=== PATIENT | female | born 1935 | race Caucasian/White ===

== ENCOUNTER 2016-09-18 16:44 | Outpatient (CLI) | payer MEDICARE, OTHER | END 2016-09-18 16:45 | disposition critical access hospital (66) | LOC: EMS 16:44 | PROVIDERS: ATTEND Surgery | DX: R11.2 Nausea with vomiting, unspecified (principal) | CPT/HCPCS: A0425; A0427 ==

== ENCOUNTER 2016-09-18 17:04 | Emergency (ER) | payer MEDICARE, OTHER ==
--- NOTE | 2016-09-18 18:32 | ED Physician Documentation ---
PD HPI NVD - Stated complaint Stated Complaint: VOMITING/NAUSEA - Chief complaint Chief Complaint: Abd Pain - History obtained from History obtained from: Patient - History of Present Illness Timing - onset: Today Timing - duration: Days (today had feeling of some nausea and less appetite. Feeling some upper abd fullness. Drove to store and there had onset of vomiting repetitively. Brought here by EMS. No prior similar episodes. She says her appetite has been less for 1-2 months, with feeling full easily.) Timing - details: Gradual onset (she had felt some bloating and mild cramps earlier this morning and did not eat due to it. Then started with vomiting when drove to store, and vomited several times over an hour or so.) Associated symptoms: Abdominal pain (bloating cramps), Loss of appetite (today, and has had less appetite for about a month or so.). No: Fever, Near syncope / syncope Contributing factors: No: Sick contact, Bad food, Travel, Recent antibiotics Improved by: Vomiting Worsened by: No: Moving, Breathing, Palpation Similar symptoms before: Has not had sx before Recently seen: Not recently seen Review of Systems Constitutional: denies: Fever, Chills Nose: denies: Rhinorrhea / runny nose, Congestion Throat: denies: Sore throat Cardiac: denies: Chest pain / pressure, Palpitations, Pedal edema, Calf pain Respiratory: denies: Dyspnea, Cough, Wheezing GI: reports: Abdominal Pain, Nausea, Vomiting. denies: Constipation, Diarrhea, Hematemesis, Bloody / black stool : denies: Dysuria, Frequency Skin: denies: Rash, Lesions Musculoskeletal: reports: Back pain (chronic), Extremity swelling (mild for 2-3 months, both legs.) Neurologic: reports: Generalized weakness. denies: Focal weakness, Numbness, Altered mental status, Headache Psychiatric: denies: Depressed, Anxiety, Insomnia Endocrine: denies: Weight loss Immunocompromised: denies: Immunocompromised, Chemotherapy PD PAST MEDICAL HISTORY - Past Medical History Cardiovascular: Hypertension - Past Surgical History Past Surgical History: No - Present Medications Home Medications: Ambulatory Orders Medication Instructions Recorded Confirmed Lisinopril [Lisinopril] 2.5 mg PO DAILY 09/18/16 09/18/16 Morphine Sulfate [Morphine Sulfate 15 mg PO DAILY 09/18/16 09/18/16 ER] Morphine Sulfate [Morphine Sulfate 30 mg PO DAILY 09/18/16 09/18/16 ER] Oxybutynin [Ditropan] 5 mg PO DAILY 09/18/16 09/18/16 Ranitidine HCl [Ranitidine HCl] 150 mg PO DAILY 09/18/16 09/18/16 Simvastatin [Simvastatin] 40 mg PO DAILY 09/18/16 09/18/16 oxyCODONE [Roxicodone] 5 mg PO DAILY 09/18/16 09/18/16 - Allergies Allergies/Adverse Reactions: Allergies Allergy/AdvReac Type Severity Reaction Status Date / Time promethazine HCl * AdvReac Unknown Verified 09/18/16 19:55 [From Phenergan] - Living Situation Living Situation: reports: Alone Living Arrangement: reports: At home - Social History Does the pt smoke?: No Does the pt drink ETOH?: No Does the pt have substance abuse?: No - Family History Family history: reports: Non contributory PD ED PE NORMAL - Vitals Vital signs reviewed: Yes - General General: Alert and oriented X 3, Well developed/nourished, Other (nauseated on exam; pleasant and talkative. ) - HEENT HEENT: Atraumatic, PERRL (nonicteric), Ears normal, Moist mucous membranes, Pharynx benign - Neck Neck: Supple, no meningeal sign, No adenopathy - Cardiac Cardiac: RRR, No murmur - Respiratory Respiratory: Clear bilaterally - Abdomen Abdomen: Soft, No organomegaly, Other (increased bowel sounds, abdomen diffusely distended with some tenseness, and is tender mid abdomen mainly. ) - Female Female : Deferred - Rectal Rectal: Deferred - Back Back: No CVA TTP - Derm Derm: Normal color, No rash - Extremities Extremities: No deformity, No tenderness to palpate, No calf tenderness / cord, Other (1+ edema in both legs up to just below knees. No rash nor sores. ) - Neuro Neuro: Alert and oriented X 3, No motor deficit, No sensory deficit, Normal speech - Psych Psych: Normal mood, Normal affect Results - Vitals Vitals: Vital Signs - 24 hr 09/18/16 09/18/16 09/18/16 17:08 19:10 21:10 Temperature 36.1 C L Heart Rate 88 102 H 87 Respiratory 16 18 20 Rate Blood Pressure 148/73 H 136/64 H 150/95 H O2 Saturation 98 99 97 09/19/16 09/19/16 00:25 02:45 Temperature Heart Rate 76 82 Respiratory 18 18 Rate Blood Pressure 138/87 H 118/68 O2 Saturation 99 98 Oxygen O2 Source Nasal cannula - Labs Labs: Laboratory Tests 09/18/16 09/18/16 09/18/16 20:25 20:25 20:25 WBC 11.0 H RBC 3.83 L Hgb 11.7 L Hct 34.9 L MCV 91.2 MCH 30.6 MCHC 33.5 RDW 13.3 Plt Count 195 MPV 8.6 Neut # 9.5 H Lymph # 0.6 L Bourbon # 0.8 Eos # 0.1 Baso # 0.0 Absolute Nucleated RBC 0.00 Nucleated RBCs 0.0 Sodium 139 Potassium 4.9 Chloride 103 Carbon Dioxide 28 Anion Gap 8.0 BUN 30 H Creatinine 1.2 H Estimated GFR (MDRD) 43 L Glucose 143 H Calcium 9.5 Magnesium 1.9 Total Bilirubin 1.2 H AST 21 ALT 27 Alkaline Phosphatase 83 Troponin I < 0.04 B-Natriuretic Peptide Total Protein 7.5 Albumin 4.1 Globulin 3.4 Albumin/Globulin Ratio 1.2 Lipase 16 L 09/18/16 20:25 WBC RBC Hgb Hct MCV MCH MCHC RDW Plt Count MPV Neut # Lymph # Bourbon # Eos # Baso # Absolute Nucleated RBC Nucleated RBCs Sodium Potassium Chloride Carbon Dioxide Anion Gap BUN Creatinine Estimated GFR (MDRD) Glucose Calcium Magnesium Total Bilirubin AST ALT Alkaline Phosphatase Troponin I B-Natriuretic Peptide 89 Total Protein Albumin Globulin Albumin/Globulin Ratio Lipase - Rads (name of study) abd CT Radiology: Prelim report reviewed (SBO with transition point RLQ. RLQ mass 8x5x5 cm. No obvious metastatic lesions seen. ), EMP read contemporaneously PD MEDICAL DECISION MAKING - ED course Complexity details: reviewed results (SBO with right adnexal mass concerning for neoplasm. Talked with Dr. Evans, Surgery, who felt the cause of the obstruction is involvement/adhesions from the tumor, and will need [facility]/Onc referral for operative intervention. Will contact [facility] facilities to arrange transfer. Patient and her daughter advised and updated. ), re- evaluated patient (she is improved with nausea and discomfort with IV fluids and meds. Still feels distended. Exam not tender at this time. No further vomiting. ), considered differential, d/w patient, d/w [employer] consultant (Dr. Evans , Surgery, who recommends transfer to [facility]/Onc, will try to arrange transfer to available facility.) Departure - Departure Disposition: 02 Transfer Acute Care Hosp Clinical Impression: Small bowel obstruction, Adnexal mass Vomiting Qualifiers: Vomiting type: unspecified Vomiting Intractability: non-intractable Nausea presence: with nausea Qualified Code(s): R11.2 - Nausea with vomiting, unspecified Condition: Stable Record reviewed to determine appropriate education?: Yes Discharge Date/Time: 09/19/16 02:51
[2016-09-18] MEDS ORDERED: SODIUM CHLORIDE 0.9% 1,000 ML IV ONE (18:53)
[2016-09-18] MEDS ORDERED: ONDANSETRON 4 MG/2 ML VIAL IVP STA (18:54)
[2016-09-18] MEDS ORDERED: ONDANSETRON 4 MG/2 ML VIAL ONE (19:50)
--- NOTE | 2016-09-18 19:53 | CT Preliminary Report ---
Exam: CT Abdomen/Pelvis W/O IMPRESSION: 1. Small bowel obstruction with transition in the right lower quadrant. 2. Multiloculated cystic right adnexal mass, appearance highly suggestive of neoplasm in a late postm enopausal patient. Recommend gynecologic consultation. 3. Intermediate density exophytic round lesion arising from the lower pole of the left kidney. Recomm end ultrasound to evaluate for cystic versus solid nature. 4. Cholelithiasis. 5. No normal pancreatic tissue confidently identified, indicating severe atrophy. [facility] SITE ID: [id number]
--- NOTE | 2016-09-18 19:56 | CT Report ---
EXAM: CT ABDOMEN AND PELVIS EXAM DATE: 09/18/2016 07:29 PM. CLINICAL HISTORY: Abdominal pain, bloating, and nausea. COMPARISONS: None. TECHNIQUE: Routine helical CT imaging was performed through the abdomen and pelvis. IV contrast: None . Enteric contrast: None. Reconstructions: Coronal and sagittal. In accordance with CT protocol optimization, one or more of the following dose reduction techniques w ere utilized for this exam: automated exposure control, adjustment of mA and/or KV based on patient s ize, or use of iterative reconstructive technique. FINDINGS: Lung Bases: Clear. Liver: Unremarkable noncontrast appearance. Gallbladder/Bile Ducts: Cholelithiasis. No pericholecystic inflammatory stranding. No biliary ductal dilatation. Spleen: Normal size. No contour-deforming mass. Pancreas: Questionable atrophic pancreatic head. No pancreatic tissue confidently visualized. Adrenal Glands: Normal. Kidneys and Ureters: 3.4 cm intermediate density exophytic lesion arising from the left lower pole (c oronal image 38, 35 HU). Several low-attenuation left renal cysts elsewhere, the largest 2.7 cm in th e anterolateral lower pole. No stones, hydronephrosis, or hydroureter. Peritoneal Cavity/Bowel: Multiple dilated fluid-filled loops of small bowel with transition to decomp ressed bowel in the right lower quadrant (axial image 48, coronal image 23). Moderate to large coloni c stool volume. Few scattered colonic diverticula, without evident focal colon wall thickening or adj acent mesenteric fat stranding to suggest acute diverticulitis. No free fluid, pneumoperitoneum, or f rank adenopathy. Pelvic Organs: Multiloculated cystic right adnexal mass measuring approximately 8.4 x 5.3 x 5.3 cm (a xial image 59, coronal image 51). Small 1.2 cm benign-appearing exophytic left ovarian cyst versus pa raovarian cyst (axial image 52). Noncontrast images of the uterus are unremarkable. The bladder is wi thin normal limits. Vasculature: Moderate atherosclerotic calcifications within the aorta and iliac arteries. No aneurysm . Bones: S-shaped thoracolumbar scoliosis. Post-remote L3-S1 posterior spinal fusion and left total hip arthroplasty. Advanced multilevel degenerative disk disease above the levels of fusion. The T12 and L1 vertebral bodies are ankylosed. Grade 1 retrolisthesis at L1-2 and L2-3. Advanced right hip osteoa rthritis. Other: None. IMPRESSION: 1. Small bowel obstruction with transition in the right lower quadrant. 2. Multiloculated cystic right adnexal mass, appearance highly suggestive of neoplasm in a late postm enopausal patient. Recommend gynecologic consultation. 3. Intermediate density exophytic round lesion arising from the lower pole of the left kidney. Recomm end ultrasound to evaluate for cystic versus solid nature. 4. Cholelithiasis. 5. No normal pancreatic tissue confidently identified, indicating severe atrophy. [facility] Referring Provider Line: [phone] SITE ID: [id number]
[2016-09-18 20:30] LABS: BASOPHILS % (AUTO) 0.3 %; EOSINOPHILS # (AUTO) 0.1 10^3/uL (0.0-0.7); EOSINOPHILS % (AUTO) 1.3 %; HCT - HEMATOCRIT 34.9 % (37.0-47.0); HGB - HEMOGLOBIN 11.7 g/dL (12.0-16.0); LYMPHOCYTES # (AUTO) 0.6 10^3/uL (1.5-3.5); LYMPHOCYTES % (AUTO) 5.5 %; MEAN CORPUSCULAR HEMOGLOBIN 30.6 pg (27.0-31.0); MEAN CORPUSCULAR HGB CONC 33.5 g/dL (32.0-36.0); MEAN CORPUSCULAR VOLUME 91.2 fL (81.0-99.0); MEAN PLATELET VOLUME 8.6 fL (7.9-10.8); MONOCYTES # (AUTO) 0.8 10^3/uL (0.0-1.0); MONOCYTES % (AUTO) 7.1 %; NEUTROPHILS # (AUTO) 9.5 10^3/uL (1.5-6.6); NEUTROPHILS % (AUTO) 85.8 %; RED BLOOD COUNT 3.83 10^6/uL (4.20-5.40); RED CELL DISTRIBUTION WIDTH 13.3 % (12.0-15.0)
[2016-09-18 20:42] LABS: ALBUMIN/GLOBULIN RATIO 1.2 (1.0-2.2); BILIRUBIN,TOTAL 1.2 mg/dL (0.2-1.0); CALCIUM 9.5 mg/dL (8.5-10.3); CREATININE 1.2 mg/dL (0.4-1.0); MAGNESIUM 1.9 mg/dL (1.7-2.8); POTASSIUM 4.9 mmol/L (3.5-5.0); TOTAL PROTEIN 7.5 g/dL (6.7-8.2)
[2016-09-18] MEDS ORDERED: MAG HYDROX/AL HYDROX/SIMETH 30 ML UDC PO STA (22:40)
[2016-09-18] MEDS ORDERED: MAG HYDROX/AL HYDROX/SIMETH 30 ML UDC ONE (22:40)
--- NOTE | 2016-09-19 00:34 | ED Physician Documentation ---
ED Addendum - Addendum Addendum: 0020 - Spoke with Dr. Edgar (gynecology at [facility]) who recommends transfer to [facility]. 0030 - Spoke with Dr. Paulson (gynecology at [facility]) who recommends calling [facility] to discuss with [facility]. [phone] [place] and [facility] do not have beds. 0050 - D/w Dr. Rodriguez ([facility]) and graciously accepts in transfer to [facility].
[2016-09-19] MEDS ORDERED: MORPHINE 10 MG/ML VIAL IVP STA (01:00)
[2016-09-19] MEDS ORDERED: MORPHINE 10 MG/ML VIAL ONE (01:06)
[2016-09-19 03:11] VITALS: BP 118/68
== END 2016-09-19 02:51 | disposition short-term general hospital (02) ==
LOC: EDUNIT# → ED 17:04
DX: K56.60 Unspecified intestinal obstruction (principal); R19.00 Intra-abdominal and pelvic swelling, mass and lump, unspecified site; R11.2 Nausea with vomiting, unspecified; K80.20 Calculus of gallbladder without cholecystitis without obstruction; I10 Essential (primary) hypertension
CPT/HCPCS: 36415; 74176; 80053; 83690; 83735; 83880; 84484; 85025; 93005; 96361; 96374; 96375; 99284; 99285; A9270

== ENCOUNTER 2016-09-19 02:53 | Outpatient (CLI) | payer MEDICARE, OTHER | END 2016-09-19 02:54 | disposition short-term general hospital (02) | LOC: EMS 02:53 | PROVIDERS: ATTEND Surgery | DX: R11.2 Nausea with vomiting, unspecified (principal); R10.9 Unspecified abdominal pain | CPT/HCPCS: A0425; A0426 ==

== ENCOUNTER 2016-12-05 15:07 | Outpatient (CLI) | payer MEDICARE, OTHER ==
--- NOTE | 2016-12-06 09:44 | Ultrasound Report ---
PELVIC ULTRASOUND: 12/05/2016 CLINICAL INDICATION: Assess pelvic mass. COMPARISON: CT 09/18/2016. TECHNIQUE: Transabdominal pelvic ultrasound performed for global evaluation. Transvaginal pelvic ul trasound performed for detailed evaluation. Real-time scanning performed and static images obtained. FINDINGS: The uterus is anteverted, measuring 6.2 x 3.5 x 2.6 cm. The endometrial echo complex zeny ures 4 mm. No focal myometrial lesion is seen. The right ovary is enlarged, measuring 10.6 x 5.7 x 4.9 cm, and contains multiple cysts with thin avascular septations. The largest single cyst measures 5.6 x 5.3 x 4.8 cm. The left ovary was not confidently identified on transabdominal or transvaginal imaging. No free fluid is seen. IMPRESSION: MULTICYSTIC RIGHT OVARY, WITH THIN AVASCULAR SEPTATIONS. NONVISUALIZATION OF THE LEFT O VARY. NORMAL POSTMENOPAUSAL UTERUS. JOB #: [id number] EXT JOB #:
== END 2016-12-05 15:08 | disposition home or self-care (01) ==
LOC: DI 15:07
PROVIDERS: ATTEND Specialist
DX: N83.201 Unspecified ovarian cyst, right side (principal)
CPT/HCPCS: 76830; 76856

== ENCOUNTER 2016-12-22 12:46 | Outpatient (CLI) | payer MEDICARE, OTHER ==
--- NOTE | 2016-12-24 08:44 | Ultrasound Report ---
EXAM: RENAL ULTRASOUND EXAM DATE: 12/22/2016 02:06 PM. CLINICAL HISTORY: KIDNEY MASS. COMPARISON: CT 09/18/2016. TECHNIQUE: Real-time scanning was performed with static images obtained. FINDINGS: Right Kidney: 11.3 x 4.7 x 4.7 cm. Normal echotexture with no shadowing stones, significant masses, o r hydronephrosis. 7 mm cyst superior and lateral. Left Kidney: 8.5 x 3.5 x 3.9 cm. non-specific non-shadowing echogenic foci in renal sinus fat. Small stones not excluded. No hydronephrosis. Hypoechoic lower pole 3.4 x 2.9 x 3.1 cm mass with enhanced t hrough transmission of sound and posterior acoustic enhancement. Internal echoes are seen with probab le internal septations. Color Doppler is seen peripherally without definite internal color flow. Additional simple cysts are seen superior medially 2.2 cm diameter and superolaterally 1.7 cm diamete r. Renal parenchymal scarring with areas of cortical thinning. No additional mass. Bladder: Bilateral jets seen. The prevoid bladder volume was 130 cc. The postvoid bladder volume was 111 cc. Bladder wall trabeculation is seen diffusely. Irregular contoured area of nodularity and vasc ularity associated with the right bladder wall measures 2.1 x 1.6 x 1.9 cm. Small bladder wall mass n ot excluded. Limited study for exclusion of small masses. IMPRESSION: 1. Non-simple lower pole septated left kidney lower pole cyst measuring 3.4 cm in diameter correspond ing to findings of mass on CT. No definite vascular flow is seen in the complex cyst on color Dopple r assessment. Follow-up is recommended. MRI could also be considered for further assessment. Addition al simple cysts are also seen bilaterally. 2. Focal area of possible bladder wall nodularity on the right as described above. Trabeculated bladd er with diffuse wall contour irregularities elsewhere. Limited assessment for evaluation of bladder m asses. Consideration of cystoscopy/direct visualization recommended. 3. Kidney stones on the left seen on CT are not identified on current ultrasound. Areas of parenchyma l thinning/parenchymal scarring are seen in the kidneys, greater on the left. 4. Exam otherwise as above. [facility] Referring Provider Line: [phone] SITE ID: [id number]
== END 2016-12-22 12:47 | disposition home or self-care (01) ==
LOC: DI 12:46
PROVIDERS: ATTEND Family Medicine
DX: N28.89 Other specified disorders of kidney and ureter (principal); N28.1 Cyst of kidney, acquired
CPT/HCPCS: 76770

== ENCOUNTER 2017-03-05 13:10 | Outpatient (CLI) | payer MEDICARE, OTHER ==
--- NOTE | 2017-03-05 19:30 | Ultrasound Report ---
PELVIC ULTRASOUND: 03/05/2017 CLINICAL INDICATION: Followup pelvic mass. COMPARISON: Ultrasound 12/05/2016. TECHNIQUE: Transabdominal pelvic ultrasound performed for global evaluation. Real-time scanning per formed and static images obtained. Due to patient anxiety and excellent visualization of the right adnexal mass on transabdominal imagin g, transvaginal scanning was not performed. The uterus is anteverted, measuring 8.5 x 3.5 x 2.6 cm. The endometrial echo complex measures 3 mm. A 5 mm calcification is noted in the fundal myometrium. The right ovary remains enlarged, measuring 9.5 x 5.8 x 5.2 cm, and is dominated by a 7.8 x 5.0 x 4.5 cm septated cystic lesion. The size of th e right ovary has decreased slightly from previous examination of 12/05/2016, when it measured 10.6 x 5.7 x 4.9 cm. No free fluid is identified. IMPRESSION: SLIGHT INTERVAL DECREASE IN SIZE OF THE SEPTATED CYSTIC LESION OF THE RIGHT OVARY. JOB #: [id number] EXT JOB #:[id number]
== END 2017-03-05 13:11 | disposition home or self-care (01) ==
LOC: DI 13:10
PROVIDERS: ATTEND Specialist
DX: N83.8 Other noninflammatory disorders of ovary, fallopian tube and broad ligament (principal)
CPT/HCPCS: 76856

== ENCOUNTER 2017-05-07 11:15 | Outpatient (CLI) | payer MEDICARE, OTHER | END 2017-05-07 11:16 | disposition home or self-care (01) | LOC: LAB.WCP 11:15 | PROVIDERS: ATTEND Family Medicine | DX: L03.116 Cellulitis of left lower limb (principal) | CPT/HCPCS: 87070; 87205 ==

== ENCOUNTER 2017-06-24 13:40 | Outpatient (CLI) | payer MEDICARE, OTHER | END 2017-06-24 13:41 | disposition home or self-care (01) | LOC: LAB.R 13:40 | PROVIDERS: ATTEND Family Medicine | DX: L03.116 Cellulitis of left lower limb (principal) | CPT/HCPCS: 87070; 87077; 87205 ==

== ENCOUNTER 2017-07-29 08:00 | Outpatient (CLI) | payer MEDICARE, OTHER ==
[2017-07-29 19:37] LABS: CALCIUM 8.9 mg/dL (8.5-10.3); CREATININE 1.3 mg/dL (0.4-1.0)
== END 2017-07-29 08:01 | disposition home or self-care (01) ==
LOC: LAB.WCP 08:00
PROVIDERS: ATTEND Family Medicine
DX: I73.9 Peripheral vascular disease, unspecified (principal)
CPT/HCPCS: 36415; 80048

== ENCOUNTER 2017-10-16 14:05 | Outpatient (CLI) | payer MEDICARE, OTHER ==
--- NOTE | 2017-10-16 16:23 | Ultrasound Report ---
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 COMPARISON: Mammogram 10/16/2017 Findings: There is diffuse skin thickening through the right lower inner and lower outer quadrants, extending down onto the upper portion of the right chest wall. No discrete sonographic abnormality is appreciated in the underlying breast parenchyma. IMPRESSION: Abnormal skin thickening in the right lower inner and lower outer quadrants. Recommendation: Surgical consultation for skin punch biopsies. BI-RADS Category 4 suspicious abnormality. Results and recommendations discussed with the patient and her daughter at the time of the examination, and called to Dr. Unger's office on 10/16/2017.
--- NOTE | 2017-10-16 16:24 | Ultrasound Report ---
Procedure Date: 10/16/2017 Accession Number: [id number] / [id number] Procedure: US - Breast Unilateral Limited CPT Code: FULL RESULT: EXAM: Breast Unilateral Limited DATE: 10/16/2017 4:15 PM CLINICAL HISTORY: Abnormal mammogram left breast TECHNIQUE: Real time scanning, with credit resolution representative static images obtained. COMPARISON: Mammogram 10/16/2017 FINDINGS: In the left upper outer quadrant, the 1:00 position 7 cm from the nipple, there is a hypoechoic nodule, measuring 10 x 9 x 8 mm. It does demonstrate some posterior acoustic shadowing. The appearance is suspicious. Biopsy is recommended. The nodule appears amenable to ultrasound-guided core needle biopsy. IMPRESSION: Suspicious nodule, correlating with the mammographic abnormality. Recommendation: Biopsy. The nodule appears amenable to ultrasound-guided core needle biopsy. BI-RADS Category 4 suspicious abnormality. Results and recommendations discussed with the patient and her daughter at the time of the examination, and called to the office of Dr. Unger on 10/16/2017. Biopsy is scheduled for 11/01/2017 at 12:15 PM.
--- NOTE | 2017-10-16 16:44 | Mammography Report ---
Procedure Date: 10/16/2017 Accession Number: [id number] / [id number] Procedure: RIVKA - Diagnostic Dig Bilat CPT Code: FULL RESULT: EXAM: Diagnostic Dig Bilat DATE: 10/16/2017 3:00 PM CLINICAL HISTORY: 81-year-old with abnormal skin thickening right lower breast TECHNIQUE: Initially, bilateral CC and MLO views and right true lateral view were obtained. Left true lateral view and laterally exaggerated craniocaudal views were obtained to evaluate a left abnormality identified on the initial views. COMPARISON: 03/22/2016, 01/17/2009 FINDINGS: The breasts demonstrate scattered fibroglandular densities bilaterally. In the left upper outer central breast, there is a new partially obscured 1 cm nodule. In the right lower central breast, there is diffuse skin thickening. No discrete breast mass is identified in the right breast, but there is new architectural distortion. Please also refer to bilateral breast ultrasounds of the same day. IMPRESSION: Suspicious abnormalities, with a solid nodule on ultrasound correlating with the nodule in the left upper outer quadrant, and diffuse skin thickening on ultrasound correlating with the right mammographic abnormality. RECOMMENDATION: Biopsy of the left breast nodule. The nodule appears amenable to ultrasound-guided core needle biopsy. Surgical consultation for the right breast skin thickening, with consideration of skin punch biopsy. BIRADS CATEGORY 4: Suspicious abnormality. Results and recommendations discussed with the patient and her daughter at the time of the examination, and called to the office of Dr. Unger on 10/16/2017. Left breast ultrasound-guided core needle biopsy is scheduled for 11/01/2017 at 12:15 PM. STANDARD QUALIFYING STATEMENTS: 1. This examination was reviewed with the aid of Computer-Aided Detection (CAD). 2. A negative or benign imaging report should not delay biopsy if clinically suspicious findings are present. Consider surgical consultation if warrented. More than 5% of cancers are not identified by imaging. 3. Dense breasts may obscure an underlying neoplasm.
== END 2017-10-16 14:06 | disposition home or self-care (01) ==
LOC: DI 14:05
PROVIDERS: ATTEND Family Medicine
DX: N63.21 Unspecified lump in the left breast, upper outer quadrant (principal); N64.59 Other signs and symptoms in breast
CPT/HCPCS: 76642; 77066

== ENCOUNTER 2017-11-01 12:11 | Outpatient (CLI) | payer MEDICARE, OTHER ==
--- NOTE | 2017-11-01 15:58 | Ultrasound Report ---
Procedure Date: 11/01/2017 Accession Number: [id number] / [id number] Procedure: US - Biopsy Breast Core CPT Code: FULL RESULT: EXAM: Ultrasound guided core biopsy of a breast lesion. DATE: 11/01/2017 12:25 PM CLINICAL HISTORY: Abnormal mammogram findings with a left breast mass. FINDINGS/TECHNIQUE: A well-circumscribed 0.8 x 0.7 cm hypoechoic mass was identified in the left breast at the 1:00 position which correlated to the mammographic findings. Informed consent was obtained. The patient was prepped in standard aseptic technique and local anesthesia was obtained with buffered lidocaine and Sensorcaine in the left breast. Following a small skin incision a 12-gauge several vacuum-assisted biopsy needle was guided into the lesion through a trocar. A total of 3 biopsy cores were obtained in 3 passes. The biopsy gun was removed and a clip was placed into the biopsy cavity under live ultrasound imaging. Placement was confirmed by ultrasound. Follow-up ultrasound demonstrated no hematoma or immediate complication. The patient was taken to separate mammography machine and a two-view digital mammography was performed to verify the clip placement and any complication. Mammography showed the clip to be within the targeted lesion cavity. The wound was dressed and ice applied. The patient was observed for approximately 15 minutes, then was discharged from diagnostic imaging Department good condition following instructions on wound care and obtaining biopsy results. IMPRESSION: Ultrasound-guided biopsy of the left breast.
--- NOTE | 2017-11-01 16:25 | Mammography Report ---
Procedure Date: 11/01/2017 Accession Number: [id number] / [id number] Procedure: RIVKA - Diagnostic Dig LT CPT Code: FULL RESULT: EXAM: Diagnostic Dig LT DATE: 11/01/2017 2:06 PM See same day ultrasound report for details on a biopsy performed.
[2017-11-01] MEDS ORDERED: BUPIVACAINE 0.5%-EPI 1:200000 PF 10 ML VIAL SUBQ ONE (16:36)
[2017-11-01] MEDS ORDERED: BUFFERED LIDOCAINE 10 ML SYRINGE IU ONE (16:36)
== END 2017-11-01 12:12 | disposition home or self-care (01) ==
LOC: DI 12:11
PROVIDERS: ATTEND Family Medicine
DX: C50.412 Malignant neoplasm of upper-outer quadrant of left female breast (principal); Z17.0 Estrogen receptor positive status [ER+]
CPT/HCPCS: 19083

== ENCOUNTER 2017-12-17 08:44 | Outpatient (CLI) | payer MEDICARE, OTHER ==
[2017-12-17] MEDS ORDERED: IOPAMIDOL-300 50 ML VIAL ONE (09:01)
[2017-12-17] MEDS ORDERED: IOPAMIDOL-300 100 ML VIAL ONE ×2 (09:01→09:13)
[2017-12-17] MEDS ORDERED: IOPAMIDOL-300 100 ML VIAL IVP ONE (11:54)
[2017-12-17] MEDS ORDERED: IOPAMIDOL-300 50 ML VIAL PO ONE (11:54)
--- NOTE | 2017-12-17 14:55 | CT Report ---
Reason: INVASIVE DUCTAL CARCINOMA/POST MENOPAUSAL Procedure Date: 12/17/2017 Accession Number: [id number] / [id number] Procedure: CT - Abdomen/Pelvis W/ CPT Code: FULL RESULT: EXAM: CT ABDOMEN AND PELVIS EXAM DATE: 12/17/2017 11:32 AM. CLINICAL HISTORY: Invasive ductal carcinoma. COMPARISONS: None. TECHNIQUE: Routine helical CT imaging was performed through the abdomen and pelvis. IV contrast: Isovue 300 100 mL. Enteric contrast: No. Reconstructions: Coronal and sagittal. In accordance with CT protocol optimization, one or more of the following dose reduction techniques were utilized for this exam: automated exposure control, adjustment of mA and/or KV based on patient size, or use of iterative reconstructive technique. FINDINGS: Lung Bases: See CT chest performed the same day. Liver: Hypodensities which are too small to characterize, otherwise unremarkable. Gallbladder/Bile Ducts: Cholelithiasis. Spleen: Normal. Pancreas: Normal. Adrenal Glands: Normal. Kidneys: The kidneys contain cysts and hypodensities which are too small to characterize. Posteriorly on the left kidney is a 1.3 cm exophytic cystic lesion which does not attenuate simple fluid, possibly due to spinal hardware streak artifact. Peritoneal Cavity/Bowel: Normal. No free fluid, free air or adenopathy. No masses or acute inflammatory process. The appendix is well visualized and normal. Pelvic Organs: Normal. The bladder and visualized pelvic organs are within normal limits. Vasculature: No aneurysms or other significant abnormality. Bones: Status post left total hip arthroplasty. End-stage degenerative changes of the right femoroacetabular joints. Status post posterior lumbar decompression and fusion. Thoracolumbar scoliosis. No aggressive osseous lesion. Other: None. IMPRESSION: No evidence of metastatic disease. RADIA
--- NOTE | 2017-12-17 14:55 | CT Report ---
Reason: INVASIVE DUCTAL CARCINOMA/POST MENOPAUSAL Procedure Date: 12/17/2017 Accession Number: [id number] / [id number] Procedure: CT - Chest W/ CPT Code: FULL RESULT: EXAM: CT CHEST EXAM DATE: 12/17/2017 11:32 AM. CLINICAL HISTORY: Invasive ductal carcinoma. COMPARISONS: None. TECHNIQUE: Routine helical CT imaging was performed through the chest. IV contrast: None. Reconstructions: Coronal and sagittal. In accordance with CT protocol optimization, one or more of the following dose reduction techniques were utilized for this exam: automated exposure control, adjustment of mA and/or KV based on patient size, or use of iterative reconstructive technique. FINDINGS: Lungs/Pleura: There are a few scattered pulmonary nodules measuring less than 4 mm. The largest pulmonary nodule measures 4 mm in the right upper lobe on image 25 of series 3. There is bronchiectasis and scarring at the right lung base. No bronchial thickening, consolidation, or edema. Pulmonary vasculature is normal. No pericardial or pleural effusion. No pneumothorax. Mediastinum: Normal. No adenopathy or masses. The heart and great vessels are normal. Bones: No aggressive osseous lesions. Visualized Abdomen: Refer to the report of the CT abdomen and pelvis from the same day. Other: Soft tissue thickening as well as skin thickening and postsurgical distortion are seen in the region of the right breast. There is no right axillary lymphadenopathy by CT criteria. There is no internal mammary lymphadenopathy by CT criteria. IMPRESSION: Posttreatment changes in the right breast. No thoracic lymphadenopathy. Scattered indeterminate pulmonary nodules measuring 4 mm or less. Attention on routine oncologic follow-up. RADIA
--- NOTE | 2017-12-17 16:17 | Nuclear Medicine Report ---
Reason: INVASIVE DUCTAL CARCINOMA/POST MENOPAUSAL Procedure Date: 12/17/2017 Accession Number: [id number] / [id number] Procedure: NM - Bone Whole Body CPT Code: FULL RESULT: EXAM: Bone Whole Body DATE: 12/17/2017 3:56 PM CLINICAL HISTORY: INVASIVE DUCTAL CARCINOMA/POST MENOPAUSAL COMPARISON: None. TECHNIQUE: The patient was injected with 30 mCi technetium 99 MDP and 9:25 AM as part of a whole-body bone scan. Imaging of the patient was not captured due to a subsequent medical emergency of the same patient. IMPRESSION: Aborted examination with 30 mCi of technetium 99 administered intravenously. RADIA
== END 2017-12-17 08:45 | disposition home or self-care (01) ==
LOC: DI 08:44
PROVIDERS: ATTEND Internal Medicine Hematology & Oncology
DX: C50.919 Malignant neoplasm of unspecified site of unspecified female breast (principal); R91.8 Other nonspecific abnormal finding of lung field; Z78.0 Asymptomatic menopausal state
CPT/HCPCS: 71260; 74177; 78306

== ENCOUNTER 2017-12-17 08:56 | Outpatient (CLI) | payer MEDICARE, OTHER ==
--- NOTE | 2017-12-18 16:28 | DEXA Report ---
Reason: POST MENOPAUSAL Procedure Date: 12/17/2017 Accession Number: [id number] / [id number] Procedure: DEX - Dexa Forearm CPT Code: FULL RESULT: EXAM: Dexa Spine and/or Hip, Dexa Forearm DATE: 12/17/2017 10:05 AM CLINICAL HISTORY: POST MENOPAUSAL TECHNIQUE: Dual energy x-ray absorptiometry (DXA) was performed on a [employer] System. Regions measured are the AP Spine, femoral neck, and if needed forearm. COMPARISON: 03/23/2016 In accordance with the International Society for Clinical Densitometry (ISCD) guidelines, data from previous exams may be reanalyzed using current recommendations and techniques. This is done to allow a more accurate basis for comparison with the current study. FINDINGS: The data for the hip is as follows: BMD (g/cm/cm) T-SCORE Z-SCORE REGION Neck 0.794 -1.8 0.4 TOTAL 0.636 -2.9 -0.9 NOTE: The femoral neck or total proximal femur, whichever is lowest, is used for classification. The data for the Right forearm is as follows: BMD (g/cm/cm) T-SCORE Z-SCORE REGION 1/3 0.503 -4.3 -1.3 NOTE: The 33% radius of the nondominant forearm is used for classification. DXA RESULTS SUMMARY: Hip SCAN DATE AGE BMD CHANGE VS CHANGE VS PREVIOUS PREVIOUS % [birth year][age][birth year][age] 0.636 -0.008 -1.2 03/23/2016 [age] 0.644 * Denotes significant change at the 95% confidence level. Denotes dissimilar scan types or analysis methods. DXA RESULTS SUMMARY: Forearm SCAN DATE AGE BMD CHANGE VS CHANGE VS PREVIOUS PREVIOUS % [birth year][age] 0.503 0.025 5.2 03/22/2016 [age] 0.478 * Denotes significant change at the 95% confidence level. Denotes dissimilar scan types or analysis methods. IMPRESSION: THE WHO CLASSIFICATION BASED ON THE INTERNATIONAL REFERENCE STANDARD IS OSTEOPOROSIS. THE FRACTURE RISK IS HIGH. RECOMMENDATION: Patients with diagnosis of osteoporosis or osteopenia should have regular bone mineral density assessment. For those eligible for Medicare, routine testing is allowed once every 2 years. Testing frequency can be increased for patients who have rapidly progressing disease or for those who are receiving medical therapy to restore bone mass. COMMENT: World Health Organization (WHO) definitions for osteoporosis and osteopenia: NORMAL BMD: T-score at -1.0 or higher, fracture risk is low OSTEOPENIA BMD: T-score between -1.0 and -2.5, fracture risk is increased. OSTEOPOROSIS BMD: T-score at -2.5 or lower, fracture risk is high. National Osteoporosis Foundation recommends: 1. Obtain adequate dietary calcium (at least 1200 mg per day) and vitamin D (400-800 international units per day). 2. Participate, as appropriate, in regular weightbearing and muscle-strengthening exercise. 3. Avoid tobacco use and reduce alcohol and caffeine intake. 4. For more detailed information see the website at www.NOF.org.
--- NOTE | 2017-12-18 16:29 | DEXA Report ---
Reason: POST MENOPAUSAL Procedure Date: 12/17/2017 Accession Number: [id number] / [id number] Procedure: DEX - Dexa Spine and/or Hip CPT Code: FULL RESULT: EXAM: Dexa Spine and/or Hip, Dexa Forearm DATE: 12/17/2017 10:05 AM CLINICAL HISTORY: POST MENOPAUSAL TECHNIQUE: Dual energy x-ray absorptiometry (DXA) was performed on a i[employer]6 System. Regions measured are the AP Spine, femoral neck, and if needed forearm. COMPARISON: 03/23/2016 In accordance with the International Society for Clinical Densitometry (ISCD) guidelines, data from previous exams may be reanalyzed using current recommendations and techniques. This is done to allow a more accurate basis for comparison with the current study. FINDINGS: The data for the hip is as follows: BMD (g/cm/cm) T-SCORE Z-SCORE REGION Neck 0.794 -1.8 0.4 TOTAL 0.636 -2.9 -0.9 NOTE: The femoral neck or total proximal femur, whichever is lowest, is used for classification. The data for the Right forearm is as follows: BMD (g/cm/cm) T-SCORE Z-SCORE REGION 1/3 0.503 -4.3 -1.3 NOTE: The 33% radius of the nondominant forearm is used for classification. DXA RESULTS SUMMARY: Hip SCAN DATE AGE BMD CHANGE VS CHANGE VS PREVIOUS PREVIOUS % [birth year]2017 [age] 0.636 -0.008 -1.2 03/23/2016 80.2 0.644 * Denotes significant change at the 95% confidence level. Denotes dissimilar scan types or analysis methods. DXA RESULTS SUMMARY: Forearm SCAN DATE AGE BMD CHANGE VS CHANGE VS PREVIOUS PREVIOUS % [birth year]2017 [age] 0.503 0.025 5.2 03/22/2016 80.2 0.478 * Denotes significant change at the 95% confidence level. Denotes dissimilar scan types or analysis methods. IMPRESSION: THE WHO CLASSIFICATION BASED ON THE INTERNATIONAL REFERENCE STANDARD IS OSTEOPOROSIS. THE FRACTURE RISK IS HIGH. RECOMMENDATION: Patients with diagnosis of osteoporosis or osteopenia should have regular bone mineral density assessment. For those eligible for Medicare, routine testing is allowed once every 2 years. Testing frequency can be increased for patients who have rapidly progressing disease or for those who are receiving medical therapy to restore bone mass. COMMENT: World Health Organization (WHO) definitions for osteoporosis and osteopenia: NORMAL BMD: T-score at -1.0 or higher, fracture risk is low OSTEOPENIA BMD: T-score between -1.0 and -2.5, fracture risk is increased. OSTEOPOROSIS BMD: T-score at -2.5 or lower, fracture risk is high. National Osteoporosis Foundation recommends: 1. Obtain adequate dietary calcium (at least 1200 mg per day) and vitamin D (400-800 international units per day). 2. Participate, as appropriate, in regular weightbearing and muscle-strengthening exercise. 3. Avoid tobacco use and reduce alcohol and caffeine intake. 4. For more detailed information see the website at www.NOF.org.
== END 2017-12-17 08:57 | disposition home or self-care (01) ==
LOC: DI 08:56
PROVIDERS: ATTEND Internal Medicine Hematology & Oncology
DX: M81.0 Age-related osteoporosis without current pathological fracture (principal)
CPT/HCPCS: 77080; 77081

== ENCOUNTER 2017-12-17 12:29 | Emergency (ER) | payer MEDICARE, OTHER ==
[2017-12-17] MEDS ORDERED: LORATADINE 10 MG TABLET PO STA (12:50)
[2017-12-17] MEDS ORDERED: DEXAMETHASONE 10 MG/ML VIAL PO STA (12:50)
[2017-12-17] MEDS ORDERED: CHERRY SYRUP 10 ML UDC PO ONE (12:54)
--- NOTE | 2017-12-17 12:58 | ED Physician Documentation ---
PD HPI SKIN - Stated complaint Stated Complaint: LIP SWELLING - Chief complaint Chief Complaint: Allergic Rx - Additional information Additional information: hx from pt 82 f to hospital today for dexa scan CT and other studies after being injected with technetium and getting CT with IV con she went to get lunch she developed lip swelling throat tightness and was sleepy so sent to ED Review of Systems Constitutional: denies: Fever, Chills Throat: reports: Other (lip swelling). denies: Sore throat Respiratory: denies: Dyspnea GI: denies: Vomiting, Diarrhea Skin: denies: Rash Neurologic: denies: Generalized weakness PD PAST MEDICAL HISTORY - Past Medical History Cardiovascular: Hypertension Respiratory: None Neuro: None Endocrine/Autoimmune: None GI: GERD : Incontinence HEENT: None Psych: None Musculoskeletal: Chronic back pain Derm: None - Past Surgical History Past Surgical History: No General: Cholecystectomy Ortho: Hip replacement, Knee replacement, Spine surgery - Present Medications Home Medications: Ambulatory Orders Medication Instructions Recorded Confirmed Morphine Sulfate [Morphine Sulfate 30 mg PO BID 09/18/16 12/10/17 ER] Oxybutynin [Ditropan] 5 mg PO BID 09/18/16 12/10/17 Simvastatin [Simvastatin] 40 mg PO DAILY 09/18/16 12/10/17 oxyCODONE [Roxicodone] 10 mg PO TID PRN 09/18/16 12/10/17 Ascorbic Acid [Vitamin C] 500 mg PO DAILY 06/04/17 12/10/17 Ferrous Sulfate [Ferrous Sulfate] 1 tab PO DAILY 06/04/17 12/10/17 Lisinopril [Zestril] 1 tab PO DAILY 06/04/17 12/10/17 Morphine Sulfate [Arymo ER] 15 mg PO DAILY PM 06/04/17 12/10/17 Oxybutynin [Ditropan] 10 mg PO DAILY PM 06/04/17 12/10/17 raNITIdine [Zantac] 150 mg PO DAILY 06/04/17 12/10/17 LORazepam [Ativan] 0.5 mg PO ONCE 12/11/17 12/11/17 - Allergies Allergies/Adverse Reactions: Allergies Allergy/AdvReac Type Severity Reaction Status Date / Time promethazine HCl * AdvReac Unknown Verified 12/17/17 12:36 [From Phenergan] - Social History Does the pt smoke?: No Smoking Status: Never smoker Does the pt drink ETOH?: No Does the pt have substance abuse?: No PD ED PE NORMAL - Vitals Vital signs reviewed: Yes - HEENT HEENT: Other (upper lip swelling, no tongue swelling) - Neck Neck: Supple, no meningeal sign - Cardiac Cardiac: RRR - Respiratory Respiratory: No respiratory distress, Clear bilaterally, Other (no wheeze) - Abdomen Abdomen: Non tender - Derm Derm: No rash - Extremities Extremities: No deformity - Neuro Neuro: Alert and oriented X 3 Results - Vitals Vitals: Vital Signs - 24 hr 12/17/17 12/17/17 12/17/17 12:32 14:30 15:35 Temperature 36.4 C L 36.2 C L Heart Rate 74 76 68 Respiratory 14 15 16 Rate Blood Pressure 139/72 H 123/63 115/61 O2 Saturation 98 97 95 Oxygen O2 Source Room air - Labs Labs: Laboratory Tests 12/17/17 12/17/17 12/17/17 13:13 13:19 14:26 Sodium 134 L Potassium 4.3 Chloride 101 Carbon Dioxide 27 Anion Gap 6.0 BUN 36 H Creatinine 1.5 H Estimated GFR (MDRD) 33 L Glucose 109 H POC Whole Bld Glucose 77 123 H Calcium 9.1 PD MEDICAL DECISION MAKING - ED course ED course: pt blood sugar was 70 and she was groggy and had airway swelling so I ordered IV and D5 nuc med tech asked if he could still do the outpt bone scan and i advised yes after the steroids and antihistamines were given and D5 was up and if he would call me to radiology dept for any worsening sx unfortunately pt nurse was with a diff critical pt and so the D5 did not get hung so the nuc med tech did not take her to the bone scan and the 4 hr window passed in any case her FSBS improved likely 2/2 the steroids and he swelling in slightly improved will dc - Sepsis Event Vital Signs: Vital Signs - 24 hr 12/17/17 12/17/17 12/17/17 12:32 14:30 15:35 Temperature 36.4 C L 36.2 C L Heart Rate 74 76 68 Respiratory 14 15 16 Rate Blood Pressure 139/72 H 123/63 115/61 O2 Saturation 98 97 95 Oxygen O2 Source Room air Departure - Departure Disposition: 01 Home, Self Care Clinical Impression: Angioedema Qualifiers: Encounter type: initial encounter Qualified Code(s): T78.3XXA - Angioneurotic edema, initial encounter Condition: Good Instructions: ED Angioedema Follow-Up: Dez Unger DO [Primary Care Provider] - Comments: The swelling has improved so it is safe for you to go home I am not sure what you were allergic to - it could have been the IV contrast from the CT, or the isotope from nuclear medicine, or your lisinopril or whatever you ate for lunch You do not need more steroids but should take claritin 10 mg once a day for the next 3 days Please do not take your lisinopril until you have seen an area loss prevention manager to determine what you are allergic to You also should not have another CT with IV contrast or bone scan until it has been determined what you are allergic to. And I noticed that you have some renal insufficiency - it is not new but it is worse than before and the CT contrast may bring it down more - please drink plenty of fluids and follow up with your PMD for a recheck Return if worse in any way
[2017-12-17] MEDS ORDERED: D5.45NS W/20 MEQ KCL 1,000 ML IV STA (13:21)
[2017-12-17 13:30] LABS: CALCIUM 9.1 mg/dL (8.5-10.3); CREATININE 1.5 mg/dL (0.4-1.0)
[2017-12-17 17:27] VITALS: BP 124/51
== END 2017-12-17 17:31 | disposition home or self-care (01) ==
LOC: ED 12:29
DX: T78.3XXA Angioneurotic edema, initial encounter (principal); I10 Essential (primary) hypertension; N28.9 Disorder of kidney and ureter, unspecified; C50.919 Malignant neoplasm of unspecified site of unspecified female breast; R91.8 Other nonspecific abnormal finding of lung field; Z78.0 Asymptomatic menopausal state; M81.0 Age-related osteoporosis without current pathological fracture
CPT/HCPCS: 36415; 71260; 74177; 77080; 77081; 78306; 80048; 99283; A9270; A9503; Q9967

== ENCOUNTER 2018-02-17 14:43 | Outpatient (CLI) | payer MEDICARE, OTHER ==
--- NOTE | 2018-02-17 15:37 | XRAY Report ---
Reason: ELBOW JOINT PAIN,RT,BRST CA Procedure Date: 02/17/2018 Accession Number: [id number] / [id number] Procedure: XR - Elbow 2 View RT CPT Code: FULL RESULT: EXAM: RIGHT ELBOW RADIOGRAPHY EXAM DATE: 02/17/2018 02:57 PM. CLINICAL HISTORY: Elbow joint pain, right;, breast carcinoma. COMPARISON: None. TECHNIQUE: 2 views. FINDINGS: Bones: Normal. No fractures or bone lesions. Joints: Calcific density seen over the insertion of the olecranon bursa with focal soft tissue swelling. No effusion. No subluxation. Soft Tissues: Normal. No soft tissue swelling. IMPRESSION: Correlate radiographic findings to clinical findings of olecranon bursitis. RADIA
== END 2018-02-17 14:44 | disposition home or self-care (01) ==
LOC: DI 14:43
PROVIDERS: ATTEND Physician Assistant
DX: M70.21 Olecranon bursitis, right elbow (principal); C50.919 Malignant neoplasm of unspecified site of unspecified female breast

== ENCOUNTER 2018-08-07 20:09 | Outpatient (CLI) | payer MEDICARE, OTHER | END 2018-08-07 20:10 | disposition critical access hospital (66) | LOC: EMS 20:09 | PROVIDERS: ATTEND Surgery | DX: R42 Dizziness and giddiness (principal); R11.2 Nausea with vomiting, unspecified | CPT/HCPCS: A0425; A0427 ==

== ENCOUNTER 2018-08-07 20:23 | Emergency (ER) | payer MEDICARE, OTHER ==
[2018-08-07] MEDS ORDERED: SODIUM CHLORIDE 0.9% 1,000 ML IV ONE (20:30)
[2018-08-07 20:46] LABS: BASOPHILS % (AUTO) 0.7 %; EOSINOPHILS # (AUTO) 0.1 10^3/uL (0.0-0.7); EOSINOPHILS % (AUTO) 2.4 %; HGB - HEMOGLOBIN 11.8 g/dL (12.0-16.0); LYMPHOCYTES % (AUTO) 17.9 %; MEAN CORPUSCULAR HEMOGLOBIN 30.3 pg (27.0-31.0); MEAN CORPUSCULAR HGB CONC 33.8 g/dL (32.0-36.0); MEAN CORPUSCULAR VOLUME 89.7 fL (81.0-99.0); MEAN PLATELET VOLUME 8.4 fL (7.9-10.8); MONOCYTES # (AUTO) 0.4 10^3/uL (0.0-1.0); MONOCYTES % (AUTO) 7.2 %; NEUTROPHILS # (AUTO) 4.2 10^3/uL (1.5-6.6); NEUTROPHILS % (AUTO) 71.8 %; PLT - PLATELET COUNT 183 10^3/uL (130-450); RED BLOOD COUNT 3.88 10^6/uL (4.20-5.40); RED CELL DISTRIBUTION WIDTH 15.2 % (12.0-15.0); WHITE BLOOD COUNT 5.8 x10^3/uL (4.8-10.8)
[2018-08-07 20:58] LABS: ALBUMIN 4.3 g/dL (3.2-5.5); ALBUMIN/GLOBULIN RATIO 1.3 (1.0-2.2); BILIRUBIN,TOTAL 0.8 mg/dL (0.2-1.0); CALCIUM 9.5 mg/dL (8.5-10.3); CREATININE 0.9 mg/dL (0.4-1.0); TOTAL PROTEIN 7.6 g/dL (6.7-8.2)
--- NOTE | 2018-08-07 21:22 | ED Physician Documentation ---
PD HPI NVD - Stated complaint Stated Complaint: N/V - Chief complaint Chief Complaint: Abd Pain - History obtained from History obtained from: Patient - History of Present Illness Timing - onset: Enter time (17:00) Timing - duration: Hours Timing - details: Abrupt onset Pain level max: 0 Pain level now: 0 Associated symptoms: Dizzy. No: Fever, Abdominal pain Improved by: Other (no ameliorating factors) Worsened by: Eating Similar symptoms before: Has not had sx before Recently seen: Not recently seen Review of Systems Constitutional: reports: Reviewed and negative Cardiac: reports: Reviewed and negative Respiratory: reports: Reviewed and negative GI: reports: Nausea, Vomiting. denies: Abdominal Pain, Abdominal Swelling, Constipation, Diarrhea : denies: Dysuria, Frequency PD PAST MEDICAL HISTORY - Past Medical History Past Medical History: Yes Cardiovascular: Hypertension Respiratory: None Neuro: None Endocrine/Autoimmune: None GI: GERD : Incontinence HEENT: None Psych: None Musculoskeletal: Chronic back pain Derm: None - Past Surgical History Past Surgical History: No General: Cholecystectomy Ortho: Hip replacement, Knee replacement, Spine surgery - Present Medications Home Medications: Ambulatory Orders Medication Instructions Recorded Confirmed Morphine Sulfate [Morphine Sulfate 30 mg PO BID 09/18/16 08/07/18 ER] Oxybutynin [Ditropan] 5 mg PO BID 09/18/16 08/07/18 Simvastatin 40 mg PO DAILY 09/18/16 08/07/18 oxyCODONE [Roxicodone] 10 mg PO TID PRN 09/18/16 08/07/18 Ascorbic Acid [Vitamin C] 500 mg PO DAILY 06/04/17 08/07/18 Ferrous Sulfate 1 tab PO DAILY 06/04/17 08/07/18 Morphine Sulfate [Arymo ER] 15 mg PO DAILY PM 06/04/17 08/07/18 Oxybutynin [Ditropan] 10 mg PO DAILY PM 06/04/17 08/07/18 raNITIdine [Zantac] 150 mg PO DAILY 06/04/17 08/07/18 LORazepam [Ativan] 0.5 mg PO ONCE 12/11/17 06/24/18 Alendronate [Fosamax] 70 mg ORAL ONCE 01/21/18 06/24/18 Anastrozole [Arimidex] 1 mg PO DAILY 01/21/18 08/07/18 Amox/Clav 875/125 [Augmentin] 1 each PO Q12H #14 tablet 08/08/18 Ondansetron Odt [Zofran Odt] 4 mg TL Q6H PRN #20 tablet 08/08/18 - Allergies Allergies/Adverse Reactions: Allergies Allergy/AdvReac Type Severity Reaction Status Date / Time promethazine HCl * AdvReac Unknown Verified 08/07/18 21:38 [From Phenergan] - Social History Does the pt smoke?: No Smoking Status: Never smoker Does the pt drink ETOH?: No Does the pt have substance abuse?: No - Immunizations Immunizations are current?: No - POLST Patient has POLST: No PD ED PE NORMAL - Vitals Vital signs reviewed: Yes - General General: Alert and oriented X 3, Well developed/nourished, Other (appears to be in waxing and waning discomfort due to nausea) - Cardiac Cardiac: RRR, No murmur - Respiratory Respiratory: No respiratory distress, Clear bilaterally - Abdomen Abdomen: Soft, Non tender, Non distended - Derm Derm: Normal color, Warm and dry - Extremities Extremities: No edema Results - Vitals Vitals: Oxygen O2 Source Nasal cannula Oxygen Flow Rate 3 - Labs Labs: Microbiology 08/07/18 22:54 Urine Culture - Preliminary Urine,Clean Catch Escherichia Coli Laboratory Tests 08/07/18 08/07/18 08/07/18 20:40 20:40 22:54 WBC 5.8 RBC 3.88 L Hgb 11.8 L Hct 34.8 L MCV 89.7 MCH 30.3 MCHC 33.8 RDW 15.2 H Plt Count 183 MPV 8.4 Neut # (Auto) 4.2 Lymph # (Auto) 1.0 L [place] # (Auto) 0.4 Eos # (Auto) 0.1 Baso # (Auto) 0.0 Absolute Nucleated RBC 0.00 Nucleated RBC % 0.0 Sodium 141 Potassium 3.8 Chloride 101 Carbon Dioxide 27 Anion Gap 13.0 BUN 28 H Creatinine 0.9 Estimated GFR (MDRD) 60 L Glucose 153 H Calcium 9.5 Total Bilirubin 0.8 AST 21 ALT 14 Alkaline Phosphatase 66 Total Protein 7.6 Albumin 4.3 Globulin 3.3 Albumin/Globulin Ratio 1.3 Lipase 22 Urine Color YELLOW Urine Clarity HAZY Urine pH 7.5 Ur Specific [place] 1.010 Urine Protein NEGATIVE Urine Glucose (UA) NEGATIVE Urine Ketones NEGATIVE Urine Occult Blood TRACE-LYSE Urine Nitrite POSITIVE H Urine Bilirubin NEGATIVE Urine Urobilinogen 0.2 (NORMAL) Ur Leukocyte Esterase SMALL H Urine RBC None Seen Urine WBC 11-25 H Urine WBC Clumps PRESENT Ur Squamous Epith Cells NONE SEEN Urine Bacteria Many H Ur Microscopic Review INDICATED Urine Culture Comments INDICATED - Rads (name of study) CT A/P Radiology: Prelim report reviewed, See rad report PD MEDICAL DECISION MAKING - ED course Complexity details: reviewed old records, reviewed results, re-evaluated patient, considered differential, d/w patient ED course: patient had symptomatic improvement after IV fluids and repeated doses of zofran. CT results d/w patient and daughter (present in ED at bedside) and advised to f/u with PMD to assess whether further testing is necessary for these incidental but concerning findings Departure - Departure Disposition: 01 Home, Self Care Clinical Impression: Vomiting, Adnexal mass, Urinary tract infection Condition: Good Instructions: ED UTI Cystitis Female, ED Nausea Vomiting Follow-Up: Dez Unger DO [Primary Care Provider] - Within 1 week Prescriptions: Amox/Clav 875/125 [Augmentin] 1 each PO Q12H #14 tablet Ondansetron Odt [Zofran Odt] 4 mg TL Q6H PRN #20 tablet PRN Reason: Nausea / Vomiting Discharge Date/Time: 08/08/18 01:30
[2018-08-07] MEDS ORDERED: ONDANSETRON 4 MG/2 ML VIAL IVP STA ×2 (21:32→22:55)
[2018-08-07] MEDS ORDERED: IOVERSOL 320 100 ML VIAL IVP ONE ×2 (21:49→22:11)
[2018-08-07 23:01] LABS: BILIRUBIN,URINE NEGATIVE (NEGATIVE); GLUCOSE, URINE (UA) NEGATIVE (NEGATIVE); KETONES,URINE (UA) NEGATIVE (NEGATIVE); LEUKOCYTE ESTERASE, URINE SMALL (NEGATIVE); NITRITE,URINE POSITIVE (NEGATIVE); OCCULT BLOOD,URINE TRACE-LYSE (NEGATIVE); PH,URINE 7.5 PH (5.0-7.5); PROTEIN,URINE NEGATIVE (NEGATIVE); UROBILINOGEN,URINE 0.2 (NORMAL) E.U./dL (NORMAL)
[2018-08-07 23:02] LABS: CLARITY,URINE HAZY (CLEAR)
[2018-08-07 23:08] LABS: BACTERIA,URINE Many /HPF (None Seen); RBC,URINE None Seen /HPF (0-5); SQUAMOUS EPITHELIAL CELL,UR NONE SEEN (<= Few); WBC CLUMPS,URINE PRESENT
--- NOTE | 2018-08-07 23:09 | CT Report ---
Reason: abd. pain, n/v Procedure Date: 08/07/2018 Accession Number: [id number] / [id number] Procedure: CT - Abdomen/Pelvis W CPT Code: FULL RESULT: EXAM: CT ABDOMEN AND PELVIS EXAM DATE: 08/07/2018 10:13 PM. CLINICAL HISTORY: Abd. pain, n/v. COMPARISONS: ABDOMEN/PELVIS W/ 12/17/2017 11:15 AM ABDOMEN/PELVIS W/O 09/18/2016 7:22 PM. TECHNIQUE: Routine helical CT imaging was performed through the abdomen and pelvis. IV contrast: [id number] 100ML. Enteric contrast: No. Reconstructions: Coronal and sagittal. In accordance with CT protocol optimization, one or more of the following dose reduction techniques were utilized for this exam: automated exposure control, adjustment of mA and/or KV based on patient size, or use of iterative reconstructive technique. FINDINGS: ABDOMEN: Lung Bases: Incompletely included lower lungs demonstrates linear opacities, likely atelectasis. Heart size is within normal limits. Severe coronary artery calcifications. No basilar effusions. Liver: Unremarkable. Spleen: Unremarkable. Pancreas: Unremarkable. Gallbladder/Bile Ducts: Cholelithiasis. Common bile duct measures up to 1.5 cm with layering choledocholithiasis in the distal duct as before. Adrenal Glands: Unremarkable. Kidneys: Left kidney: Extrarenal pelvis again seen. Multiple renal cysts. A couple of nonestrogen calculi measuring up to 3 mm. Right kidney: Stable mild hydronephrosis. Peritoneum/Mesentery/Bowel: No free fluid, free air, or collection. No intestinal obstruction or inflammation. Appendix not definitively identified. No evidence for appendicitis. Lymph nodes: No mesenteric, periportal, or retroperitoneal lymphadenopathy. Vasculature: Abdominal aorta is nonaneurysmal. Portal vein is patent. Hepatic veins are patent. PELVIS: Multiple bladder diverticula are present. Uterus is present. 10 x 6 cm septated right adnexal cystic structure, stable. No pelvic lymphadenopathy. Bones: No suspicious osseous lesions. IMPRESSION: Redemonstration of septated 10 x 6 cm cystic masslike structure in the right adnexa, stable to mildly enlarged since 12/17/2017 and enlarged since 09/18/2016. This is highly suspicious for ovarian neoplasm. Surgical consultation is recommended. Redemonstration of choledocholithiasis and cholelithiasis. Common bile duct dilatation is also stable. Stable mild right hydronephrosis, suspect secondary to the right adnexal cystic mass. Severe coronary artery calcifications. RADIA
[2018-08-08] MEDS ORDERED: cefTRIAXone 1 GM in SODIUM CHLORIDE 0.9% MINIBAG 100 ML IV STA (00:37)
[2018-08-08] MEDS ORDERED: ONDANSETRON ODT 4 MG Prepack 2 TL STA (00:37)
[2018-08-08 01:16] VITALS: BP 136/71
== END 2018-08-08 01:30 | disposition home or self-care (01) ==
LOC: EDUNIT# → EDBD → ED 20:23
DX: R11.10 Vomiting, unspecified (principal); R22.9 Localized swelling, mass and lump, unspecified; N39.0 Urinary tract infection, site not specified; I10 Essential (primary) hypertension; Z96.649 Presence of unspecified artificial hip joint; Z96.659 Presence of unspecified artificial knee joint
CPT/HCPCS: 36415; 74177; 80053; 81001; 83690; 85025; 87086; 87181; 96361; 96365; 96375; 96376; 99283; 99285; Q9967; 81003

== ENCOUNTER 2018-09-20 20:11 | Emergency (ER) | payer MEDICARE, OTHER ==
--- NOTE | 2018-09-20 20:30 | ED Physician Documentation ---
PD HPI FEMALE - Stated complaint Stated Complaint: UTI SYMPTOM/VOMITING - Chief complaint Chief Complaint: Abd Pain - History obtained from History obtained from: Patient, Family - History of Present Illness Timing - onset: Today Timing - duration: Days (1) Timing - details: Abrupt onset, Still present Associated symptoms: Urinary frequency, Other (feeling of nausea and has had couple episodes of vomiting.). No: Fever, Abdominal pain, Back pain, Vaginal discharge, Genital sore/lesion Similar symptoms before: Diagnosis (had similar symptoms in July, with Dx of UTI and anxiety. 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 denies: Abdominal Pain, Diarrhea : reports: Frequency. denies: Dysuria Neurologic: reports: Generalized weakness. denies: Focal weakness, Numbness, Altered mental status, Headache PD PAST MEDICAL HISTORY - Past Medical History Cardiovascular: Hypertension Respiratory: None Neuro: None Endocrine/Autoimmune: None GI: GERD : Incontinence HEENT: None Psych: None Musculoskeletal: Chronic back pain Derm: None - Past Surgical History Past Surgical History: No General: Cholecystectomy Ortho: Hip replacement, Knee replacement, Spine surgery - Present Medications Home Medications: Ambulatory Orders Medication Instructions Recorded Confirmed Morphine Sulfate [Morphine Sulfate 30 mg PO BID 09/18/16 09/20/18 ER] Oxybutynin [Ditropan] 5 mg PO BID 09/18/16 09/20/18 Simvastatin 40 mg PO DAILY 09/18/16 09/20/18 oxyCODONE [Roxicodone] 10 mg PO TID PRN 09/18/16 09/20/18 Ascorbic Acid [Vitamin C] 500 mg PO DAILY 06/04/17 09/20/18 Ferrous Sulfate 1 tab PO DAILY 06/04/17 09/20/18 Morphine Sulfate [Arymo ER] 15 mg PO DAILY PM 06/04/17 09/20/18 Oxybutynin [Ditropan] 10 mg PO DAILY PM 06/04/17 09/20/18 raNITIdine [Zantac] 150 mg PO DAILY 06/04/17 09/20/18 Alendronate [Fosamax] 70 mg ORAL ONCE 01/21/18 09/20/18 Anastrozole [Arimidex] 1 mg PO DAILY 01/21/18 09/20/18 Cephalexin [Keflex] 500 mg PO TID #21 capsule 09/20/18 - Allergies Allergies/Adverse Reactions: Allergies Allergy/AdvReac Type Severity Reaction Status Date / Time ciprofloxacin [From Cipro] Allergy Emesis Verified 09/20/18 21:01 lisinopril Allergy Unknown Verified 09/20/18 21:01 sulfamethoxazole Allergy Itching Verified 09/20/18 21:01 [From Bactrim] trimethoprim [From Bactrim] Allergy Itching Verified 09/20/18 21:01 promethazine HCl * AdvReac Unknown Verified 09/20/18 21:01 [From Phenergan] IV Contrast Allergy Unknown Uncoded 09/20/18 21:01 - Social History Does the pt smoke?: No Smoking Status: Never smoker Does the pt drink ETOH?: No Does the pt have substance abuse?: No - Immunizations Immunizations are current?: No - POLST Patient has POLST: No PD ED PE NORMAL - Vitals Vital signs reviewed: Yes - General General: Alert and oriented X 3, No acute distress, Well developed/nourished - Cardiac Cardiac: RRR, No murmur - Respiratory Respiratory: Clear bilaterally - Abdomen Abdomen: Soft, Non tender - Female Female : Deferred - Rectal Rectal: Deferred - Back Back: No CVA TTP - Derm Derm: Normal color, Warm and dry Results - Vitals Vitals: Vital Signs - 24 hr 09/20/18 22:06 Temperature 36.9 C Heart Rate 77 Respiratory 18 Rate Blood Pressure 154/77 H O2 Saturation 96 Oxygen O2 Source Room air - Labs Labs: Microbiology 09/20/18 21:30 Urine Culture - Preliminary Urine,Clean Catch CULTURE IN PROGRESS. RESULTS TO FOLLOW. Laboratory Tests 09/20/18 21:30 Urine Color YELLOW Urine Clarity HAZY Urine pH 6.0 Ur Specific [place] 1.010 Urine Protein NEGATIVE Urine Glucose (UA) NEGATIVE Urine Ketones NEGATIVE Urine Occult Blood TRACE-LYSE Urine Nitrite POSITIVE H Urine Bilirubin NEGATIVE Urine Urobilinogen 0.2 (NORMAL) Ur Leukocyte Esterase MODERATE H Urine RBC 0-5 Urine WBC >25 H Ur Squamous Epith Cells FEW Squamous Urine Bacteria Many H Ur Microscopic Review INDICATED Urine Culture Comments INDICATED PD MEDICAL DECISION MAKING - ED course Complexity details: reviewed old records, reviewed results, considered differential, d/w patient (known ovarian mass that has been followed for few years. ), d/w family Departure - Departure Disposition: 01 Home, Self Care Clinical Impression: Urinary tract infection Qualifiers: Urinary tract infection type: acute cystitis Hematuria presence: without hematuria Qualified Code(s): N30.00 - Acute cystitis without hematuria Nausea and vomiting Qualifiers: Vomiting type: unspecified Vomiting Intractability: non-intractable Qualified Code(s): R11.2 - Nausea with vomiting, unspecified Condition: Stable Record reviewed to determine appropriate education?: Yes Instructions: ED UTI Cystitis Female Follow-Up: Dez Unger DO [Primary Care Provider] - Prescriptions: Cephalexin [Keflex] 500 mg PO TID #21 capsule Comments: Stay well-hydrated. Use your ondansetron at home every 6 hours if needed for nausea. Cephalexin antibiotic 3 times a day for a week for the urinary tract infection. Recheck if not improving in the next 1 to 2 days. Return sooner if worsening symptoms. The culture will result in 2 to 3 days and will call you if we need to change the antibiotic. Discharge Date/Time: 09/20/18 22:06
[2018-09-20] MEDS ORDERED: ONDANSETRON ODT 4 MG TABLET TL STA (21:33)
[2018-09-20 21:46] LABS: BILIRUBIN,URINE NEGATIVE (NEGATIVE); GLUCOSE, URINE (UA) NEGATIVE (NEGATIVE); KETONES,URINE (UA) NEGATIVE (NEGATIVE); LEUKOCYTE ESTERASE, URINE MODERATE (NEGATIVE); NITRITE,URINE POSITIVE (NEGATIVE); OCCULT BLOOD,URINE TRACE-LYSE (NEGATIVE); PROTEIN,URINE NEGATIVE (NEGATIVE); UROBILINOGEN,URINE 0.2 (NORMAL) E.U./dL (NORMAL)
[2018-09-20 21:48] LABS: CLARITY,URINE HAZY (CLEAR)
[2018-09-20] MEDS ORDERED: cephALEXin 250 MG CAPSULE PO STA (21:56)
[2018-09-20 21:58] LABS: BACTERIA,URINE Many /HPF (None Seen); RBC,URINE 0-5 /HPF (0-5); SQUAMOUS EPITHELIAL CELL,UR FEW Squamous (<= Few)
[2018-09-20 22:07] VITALS: BP 154/77
== END 2018-09-20 22:06 | disposition home or self-care (01) ==
LOC: ED 20:11
DX: N30.00 Acute cystitis without hematuria (principal); R11.2 Nausea with vomiting, unspecified; I10 Essential (primary) hypertension; R32 Unspecified urinary incontinence; G89.29 Other chronic pain; M54.9 Dorsalgia, unspecified; Z96.649 Presence of unspecified artificial hip joint; Z96.659 Presence of unspecified artificial knee joint; Z79.891 Long term (current) use of opiate analgesic
CPT/HCPCS: 81001; 87086; 87181; 99283; A9270; Q0162; 81003

== ENCOUNTER 2019-11-04 17:10 | Outpatient (CLI) | payer MEDICARE, OTHER ==
[2019-11-04 18:53] LABS: BASOPHILS % (AUTO) 0.5 %; EOSINOPHILS # (AUTO) 0.2 10^3/uL (0.0-0.7); EOSINOPHILS % (AUTO) 3.9 %; HGB - HEMOGLOBIN 11.5 g/dL (12.0-16.0); LYMPHOCYTES # (AUTO) 1.6 10^3/uL (1.5-3.5); LYMPHOCYTES % (AUTO) 26.3 %; MEAN CORPUSCULAR HEMOGLOBIN 30.3 pg (27.0-31.0); MEAN CORPUSCULAR HGB CONC 30.4 g/dL (32.0-36.0); MEAN CORPUSCULAR VOLUME 99.5 fL (81.0-99.0); MEAN PLATELET VOLUME 10.1 fL (7.9-10.8); MONOCYTES # (AUTO) 0.4 10^3/uL (0.0-1.0); NEUTROPHILS # (AUTO) 3.8 10^3/uL (1.5-6.6); NEUTROPHILS % (AUTO) 62.1 %; PLT - PLATELET COUNT 198 10^3/uL (130-450); WHITE BLOOD COUNT 6.1 x10^3/uL (4.8-10.8)
[2019-11-04 19:09] LABS: ALBUMIN 4.2 g/dL (3.2-5.5); ALBUMIN/GLOBULIN RATIO 1.4 (1.0-2.2); ALKALINE PHOSPHATASE 50 IU/L (42-121); ALT ALANINE AMINOTRANSFERASE 14 IU/L (10-60); AST ASPARTATE AMINOTRANSFERASE 19 IU/L (10-42); BILIRUBIN,TOTAL 1.2 mg/dL (0.2-1.0); BUN - BLOOD UREA NITROGEN 27 mg/dL (6-20); CALCIUM 9.2 mg/dL (8.5-10.3); CARBON DIOXIDE - CO2 30 mmol/L (21-32); CHLORIDE 103 mmol/L (101-111); CHOL/HDL RATIO 2.1 (<4.4); CHOLESTEROL 146 mg/dL; CREATININE 1.2 mg/dL (0.4-1.0); GLUCOSE 107 mg/dL (70-100); HDL CHOLESTEROL 68 mg/dL; LDL CHOLESTEROL,CALCULATED 63 mg/dL; LDL/HDL RATIO 0.9 (<4.4); SODIUM 141 mmol/L (135-145); TOTAL PROTEIN 7.2 g/dL (6.7-8.2); VLDL CHOLESTEROL 15 mg/dL
[2019-11-04 19:51] LABS: HB2 TOTAL 12.3 g/dL; HEMOGLOBIN A1C 0.54 g/dL; HEMOGLOBIN A1C % 6.2 % (4.6-6.2)
== END 2019-11-04 23:59 | disposition home or self-care (01) ==
LOC: LAB.WCP 17:10
PROVIDERS: ATTEND Family Medicine
DX: E11.9 Type 2 diabetes mellitus without complications (principal)
CPT/HCPCS: 36415; 80053; 80061; 83036; 83721; 85025

== ENCOUNTER 2020-06-16 19:19 | Outpatient (CLI) | payer MEDICARE, OTHER | END 2020-06-16 19:20 | disposition critical access hospital (66) | LOC: EMS 19:19 | PROVIDERS: ATTEND Emergency Medicine | DX: R11.2 Nausea with vomiting, unspecified (principal); R51.9 Headache, unspecified; R19.7 Diarrhea, unspecified | CPT/HCPCS: A0425; A0427 ==

== ENCOUNTER 2020-06-16 19:34 | Emergency (ER) | payer MEDICARE, OTHER ==
[2020-06-16] MEDS ORDERED: diphenhydrAMINE INJ 50 MG/ML VIAL IVP STA (19:51)
[2020-06-16] MEDS ORDERED: DEXAMETHASONE 10 MG/ML VIAL IVP STA (19:51)
--- NOTE | 2020-06-16 19:54 | ED Physician Documentation ---
History of Present Illness - Stated complaint Stated Complaint: REACTION TO CONTRAST - Chief complaint Chief Complaint: Allergic Rx - History obtained from History obtained from: Patient, Family - History of Present Illness Timing: Last night - Additonal information Additional information: 84-year-old female undergoing treatment for renal cell carcinoma had a CT scan with contrast done yesterday and following that she developed some exploding pain in her left ear and a bit of a headache with some nausea. She subsequently recalled that she has had a contrast reaction previously when she talk to her daughter. Her daughter remembers the reaction and the patient now remembers this as well. She states that when they did her scan yesterday afternoon they asked her about a contrast reaction she did not recall any contrast reaction the study was done without premedication. Review of Systems Constitutional: denies: Fever Ears: reports: Ear pain Nose: denies: Rhinorrhea / runny nose, Congestion Throat: denies: Sore throat Cardiac: denies: Chest pain / pressure, Palpitations Respiratory: denies: Dyspnea, Cough GI: reports: Nausea. denies: Abdominal Pain, Vomiting, Constipation, Diarrhea : denies: Dysuria, Frequency Skin: denies: Rash Musculoskeletal: denies: Neck pain, Back pain, Extremity pain Neurologic: reports: Headache. denies: Focal weakness, Numbness, Head injury, LOC PD PAST MEDICAL HISTORY - Past Medical History Cardiovascular: Hypertension Respiratory: None Neuro: None Endocrine/Autoimmune: None GI: GERD OPTOMETRY ASSISTANT: Breast cancer (Bilateral) : Incontinence HEENT: None Psych: None Musculoskeletal: Osteoporosis, Chronic back pain Derm: None - Past Surgical History Past Surgical History: No General: Cholecystectomy Ortho: Hip replacement, Knee replacement, Spine surgery - Present Medications Home Medications: Ambulatory Orders Medication Instructions Recorded Confirmed Morphine Sulfate [Morphine Sulfate 30 mg PO BID 09/18/16 06/16/20 ER] Oxybutynin [Ditropan] 5 mg PO BID 09/18/16 06/16/20 Simvastatin 40 mg PO DAILY 09/18/16 06/16/20 oxyCODONE [Roxicodone] 10 mg PO TID PRN 09/18/16 06/16/20 Ascorbic Acid [Vitamin C] 500 mg PO DAILY 06/04/17 05/17/20 Ferrous Sulfate 1 tab PO DAILY 06/04/17 05/17/20 Alendronate [Fosamax] 70 mg ORAL ONCE 01/21/18 05/17/20 Anastrozole [Arimidex] 1 mg PO DAILY 01/21/18 05/17/20 Furosemide 20 mg PO DAILY 02/24/20 05/17/20 Nitrofurantoin Monohyd/M-Cryst 100 mg PO BID #14 cap 06/16/20 [Macrobid 100 mg Capsule] - Allergies Allergies/Adverse Reactions: Allergies Allergy/AdvReac Type Severity Reaction Status Date / Time ciprofloxacin [From Cipro] Allergy Emesis Verified 05/17/20 14:46 lisinopril Allergy Unknown Verified 05/17/20 14:46 sulfamethoxazole Allergy Itching Verified 05/17/20 14:46 [From Bactrim] trimethoprim [From Bactrim] Allergy Itching Verified 05/17/20 14:46 promethazine HCl * AdvReac Unknown Verified 05/17/20 14:46 [From Phenergan] IV Contrast Allergy Emesis Uncoded 06/16/20 19:42 - Social History Does the pt smoke?: No Smoking Status: Never smoker Does the pt drink ETOH?: No Does the pt have substance abuse?: No - Immunizations Immunizations are current?: No - POLST Patient has POLST: No PD ED PE NORMAL - Vitals Vital signs reviewed: Yes (hypertensive ) - General General: Alert and oriented X 3, No acute distress, Well developed/nourished - HEENT HEENT: PERRL, EOMI, Ears normal, Moist mucous membranes, Pharynx benign, Other (There is an area over the left lutheran with a recent derm procedure and the area is red about 1cm round. ) - Neck Neck: Supple, no meningeal sign, No bony TTP - Cardiac Cardiac: RRR, No murmur - Respiratory Respiratory: No respiratory distress, Clear bilaterally - Abdomen Abdomen: Normal bowel sounds, Soft, Non tender, Non distended, No organomegaly - Back Back: No CVA TTP, No spinal TTP - Derm Derm: Normal color, Warm and dry, No rash - Extremities Extremities: No deformity, Other (The LE are bandaged and edematous and tender. She is being cared for in the wound clinic and the dressings are not removed. 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, No motor deficit, No sensory deficit, Normal speech Eye Opening: Spontaneous Motor: Obeys Commands Verbal: Oriented GCS Score: 15 - Psych Psych: Normal mood, Normal affect Results - Vitals Vitals: Vital Signs - 24 hr 06/16/20 06/16/20 06/16/20 19:42 19:52 19:55 Temperature 36.6 C 36.6 C Heart Rate 91 91 75 Respiratory 20 20 Rate Blood Pressure 137/111 H 137/111 H 136/111 H O2 Saturation 96 96 Oxygen O2 Source Room air - Labs Labs: Laboratory Tests 06/16/20 06/16/20 06/16/20 20:01 20:01 20:34 WBC 6.7 RBC 3.77 L Hgb 11.9 L Hct 36.6 L MCV 97.1 MCH 31.6 H MCHC 32.5 RDW 12.5 Plt Count 199 MPV 9.7 Neut # (Auto) 5.2 Lymph # (Auto) 0.9 L [place] # (Auto) 0.5 Eos # (Auto) 0.1 Baso # (Auto) 0.0 Absolute Nucleated RBC 0.00 Nucleated RBC % 0.0 Sodium 142 Potassium 3.7 Chloride 100 L Carbon Dioxide 29 Anion Gap 13.0 BUN 25 H Creatinine 0.9 Estimated GFR (MDRD) 60 L Glucose 105 H Calcium 9.2 Total Bilirubin 1.3 H AST 20 ALT 13 Alkaline Phosphatase 55 Total Protein 7.3 Albumin 3.9 Globulin 3.4 Albumin/Globulin Ratio 1.1 Lipase 15 L Urine Color YELLOW Urine Clarity CLOUDY Urine pH 7.5 Ur Specific [place] 1.015 Urine Protein 100 H Urine Glucose (UA) NEGATIVE Urine Ketones NEGATIVE Urine Occult Blood SMALL H Urine Nitrite POSITIVE H Urine Bilirubin NEGATIVE Urine Urobilinogen 0.2 (NORMAL) Ur Leukocyte Esterase LARGE H Urine RBC 6-10 H Urine WBC >25 H Ur Squamous Epith Cells FEW Squamous Urine Bacteria Many H Ur Microscopic Review INDICATED Urine Culture Comments INDICATED Procedures - IVC sono (time) 1950 Bedside IVC sono: IVC measures (cm) (2.02), IVC collapsed c insp (cm) (2.02), High CVP PD MEDICAL DECISION MAKING - ED course Complexity details: reviewed old records, reviewed results, re-evaluated patient, considered differential, d/w patient, d/w family ED course: 84-year-old female with history of contrast reaction appears of had another contrast reaction and she has her symptoms manifested by a headache and nausea. She is not fluid depleted and I am not able to provide her with additional intravenous fluid. She is administered dexamethasone 10 mg and Benadryl 25 mg. She has some improvement in her nausea and her urine is found to be obviously infected on microscopic U/A. All parameters of the urinalysis indicate pathologic infection. After discussion with the caregiver and by text with the Daughter they would prefer treatment. Her symptoms of UTI previously have been nausea. She is incontinent. She is administered IV rocephin and we will place her on macrobid as her prior urine grew an E. Coli resistant to septra, cipro, levaquin and keflex. (she was last treated with keflex) It was sensitive to macrobid and ceftriaxone as were the prior 3 specimens. Departure - Departure Disposition: 01 Home, Self Care Clinical Impression: Urinary tract infection Qualifiers: Urinary tract infection type: acute cystitis Hematuria presence: with hematuria Qualified Code(s): N30.01 - Acute cystitis with hematuria Condition: Stable Instructions: ED UTI Cystitis Female, ED Allergic Reaction General Other Follow-Up: Dez Unger DO [Primary Care Provider] - Prescriptions: Nitrofurantoin Monohyd/M-Cryst [Macrobid 100 mg Capsule] 100 mg PO BID #14 cap
[2020-06-16 20:06] LABS: BASOPHILS % (AUTO) 0.6 %; EOSINOPHILS # (AUTO) 0.1 10^3/uL (0.0-0.7); EOSINOPHILS % (AUTO) 0.7 %; HGB - HEMOGLOBIN 11.9 g/dL (12.0-16.0); LYMPHOCYTES # (AUTO) 0.9 10^3/uL (1.5-3.5); LYMPHOCYTES % (AUTO) 13.7 %; MEAN CORPUSCULAR HEMOGLOBIN 31.6 pg (27.0-31.0); MEAN CORPUSCULAR HGB CONC 32.5 g/dL (32.0-36.0); MEAN CORPUSCULAR VOLUME 97.1 fL (81.0-99.0); MEAN PLATELET VOLUME 9.7 fL (7.9-10.8); MONOCYTES # (AUTO) 0.5 10^3/uL (0.0-1.0); MONOCYTES % (AUTO) 7.1 %; NEUTROPHILS # (AUTO) 5.2 10^3/uL (1.5-6.6); NEUTROPHILS % (AUTO) 77.8 %; PLT - PLATELET COUNT 199 10^3/uL (130-450); RED BLOOD COUNT 3.77 10^6/uL (4.20-5.40); RED CELL DISTRIBUTION WIDTH 12.5 % (12.0-15.0); WHITE BLOOD COUNT 6.7 x10^3/uL (4.8-10.8)
[2020-06-16 20:19] LABS: ALBUMIN 3.9 g/dL (3.2-5.5); ALBUMIN/GLOBULIN RATIO 1.1 (1.0-2.2); BILIRUBIN,TOTAL 1.3 mg/dL (0.2-1.0); CALCIUM 9.2 mg/dL (8.5-10.3); CREATININE 0.9 mg/dL (0.4-1.0); TOTAL PROTEIN 7.3 g/dL (6.7-8.2)
[2020-06-16 20:48] LABS: BILIRUBIN,URINE NEGATIVE (NEGATIVE); GLUCOSE, URINE (UA) NEGATIVE (NEGATIVE); KETONES,URINE (UA) NEGATIVE (NEGATIVE); LEUKOCYTE ESTERASE, URINE LARGE (NEGATIVE); NITRITE,URINE POSITIVE (NEGATIVE); OCCULT BLOOD,URINE SMALL (NEGATIVE); PH,URINE 7.5 PH (5.0-7.5); PROTEIN,URINE 100 mg/dL (NEGATIVE); UROBILINOGEN,URINE 0.2 (NORMAL) E.U./dL (NORMAL)
[2020-06-16 20:50] LABS: CLARITY,URINE CLOUDY (CLEAR)
[2020-06-16 20:57] LABS: BACTERIA,URINE Many /HPF (None Seen); SQUAMOUS EPITHELIAL CELL,UR FEW Squamous (<= Few)
[2020-06-16] MEDS ORDERED: cefTRIAXone 1 GM in SODIUM CHLORIDE 0.9% MINIBAG 100 ML IV STA (21:12)
[2020-06-16] MEDS ORDERED: cefTRIAXone 1 GM VIAL ONE (21:26)
[2020-06-16 21:31] VITALS: BP 162/83
== END 2020-06-16 21:57 | disposition home or self-care (01) ==
LOC: EDUNIT# → ED 19:34
DX: R51.9 Headache, unspecified (principal); R11.0 Nausea; T50.8X5A Adverse effect of diagnostic agents, initial encounter; N30.01 Acute cystitis with hematuria; C64.9 Malignant neoplasm of unspecified kidney, except renal pelvis; Z85.3 Personal history of malignant neoplasm of breast; I10 Essential (primary) hypertension
CPT/HCPCS: 80053; 81001; 83690; 85025; 87086; 87181; 96365; 96375; 99284; J1200; 36415; 81003

== ENCOUNTER 2020-09-06 18:27 | Outpatient (CLI) | payer MEDICARE, OTHER ==
--- NOTE | 2020-09-06 16:34 | XRAY Report ---
PROCEDURE: Hip w/Pelvis 1V RT INDICATIONS: R HIP PX TECHNIQUE: AP pelvis with lateral view(s) of the bilateral hip(s). COMPARISON: 01/11/2007 hip radiographs FINDINGS: Partially visualized lumbar spine posterior fixation hardware and left hip arthroplasty. Severe right hip joint degeneration with [id number] appearance, subchondral sclerosis and spurring. No definite acute fracture identified IMPRESSION: Severe right hip osteoarthritis. This is progressed since the prior study Reviewed by: Cortez Diamond MD on 09/06/2020 4:33 PM PDT Approved by: Cortez Diamond MD on 09/06/2020 4:33 PM PDT Station ID: [id number]
== END 2020-09-06 23:59 | disposition home or self-care (01) ==
LOC: DI.N 18:27
PROVIDERS: ATTEND Orthopaedic Surgery
DX: M25.551 Pain in right hip (principal); M16.11 Unilateral primary osteoarthritis, right hip

== ENCOUNTER 2020-09-20 17:55 | Outpatient (CLI) | payer MEDICARE, OTHER | END 2020-09-20 17:56 | disposition EMS.NT | LOC: EMS 17:55 | DX: Z03.89 Encounter for observation for other suspected diseases and conditions ruled out (principal) ==

== ENCOUNTER 2020-09-27 08:44 | Outpatient (CLI) | payer MEDICARE, OTHER ==
[2020-09-27] MEDS ORDERED: ROPIVACAINE 0.5% PF 20 ML AMPULE ONE (08:51)
[2020-09-27] MEDS ORDERED: BUFFERED LIDOCAINE 10 ML SYRINGE ONE (08:51)
[2020-09-27] MEDS ORDERED: TRIAMCINOLONE 40 MG/ML VIAL ONE (08:52)
[2020-09-27] MEDS ORDERED: IOTHALAMATE MEGLUMINE 50 ML VIAL ONE (08:52)
[2020-09-27] MEDS ORDERED: BUFFERED LIDOCAINE 10 ML SYRINGE IU ONE (11:04)
--- NOTE | 2020-09-27 11:04 | XRAY Report ---
PROCEDURE: Inj/Aspiration Major Joint INDICATIONS: Posterior to right is CONTRAST: Air contrast was used, as the patient reports a contrast allergy. FLUORO TIME: FLUORO TIME: 0.3 min and NUMBER IMAGES: 1 TECHNIQUE: The indications, alternatives, benefits, risks, and complications of the procedure were explained to the patient. Written informed consent was obtained and placed in the chart. The patient was placed in an appropriate position on the fluoroscopy table, and a site was chosen for percutaneous access un ace fluoroscopic guidance. Local anesthetic was administered using a 1% lidocaine solution. A hypod ermic or spinal needle was then used to access the symptomatic joint. Intra-articular location of th e needle tip was confirmed by injecting a small amount of air, followed by steroid administration. T he needle was then withdrawn, and a bandage applied to the puncture site. FINDINGS: Joint injected: Right hip Medications injected: 1 mL of 40 mg/mL Kenalog and 4 mL 0.5% Ropivacaine mixture. Complications: None. IMPRESSION: Successful fluoroscopically guided administration of steroid and anaesthetic solution into the right hip joint. Reviewed by: Igor Hernandez MD on 09/27/2020 11:03 AM PDT Approved by: Igor Hernadnez MD on 09/27/2020 11:03 AM PDT Station ID: [id number]
[2020-09-27] MEDS ORDERED: ROPIVACAINE 0.5% PF 20 ML AMPULE EP ONE (11:06)
[2020-09-27] MEDS ORDERED: TRIAMCINOLONE 40 MG/ML VIAL IM ONE (11:07)
== END 2020-09-27 08:45 | disposition home or self-care (01) ==
LOC: DI 08:44
PROVIDERS: ATTEND Orthopaedic Surgery
DX: M16.11 Unilateral primary osteoarthritis, right hip (principal)
CPT/HCPCS: 20610

== ENCOUNTER 2020-10-17 20:34 | Outpatient (CLI) | payer MEDICARE, OTHER | END 2020-10-17 20:35 | disposition EMS.NT | LOC: EMS 20:34 | DX: R60.0 Localized edema (principal) ==